=== PATIENT | female | born 1940 | race Caucasian/White ===

== ENCOUNTER → 2017-05-16 | Day surgery (SDC) | payer MEDICARE ==
[2017-05-15 12:08] LABS: BASOPHILS % 0.8 % (0.0-1.0); EOSINOPHILS # (AUTO) 0.2 (0.0-0.4); HEMATOCRIT 39.3 % (34.2-44.1); HEMOGLOBIN 12.6 g/dL (12.0-16.0); LYMPHOCYTES # (AUTO) 1.7 (1.0-3.2); LYMPHOCYTES % 43.2 % (18.0-39.1); MEAN CORPUSCULAR HEMOGLOBIN 29.8 pg (28-32); MEAN CORPUSCULAR HGB CONC 32.1 g/dL (31-35); MEAN CORPUSCULAR VOLUME 92.9 fL (81-99); MONOCYTES # (AUTO) 0.5 (0.2-0.8); MONOCYTES % 11.3 % (4.4-11.3); NEUTROPHILS # (AUTO) 1.6 (2.1-6.9); NEUTROPHILS % 39.2 % (38.7-80.0); PLATELET COUNT 249 x10e3/uL (140-360); RED BLOOD COUNT 4.23 x10e6/uL (3.6-5.1); RED CELL DISTRIBUTION WIDTH 12.8 % (11.7-14.4)
--- NOTE | 2017-05-15 15:05 | Diagnostic Imaging Report ---
PROCEDURE: Frontal and lateral views of the chest. COMPARISON: None. INDICATIONS: PREOPERATIVE CHEST XRAY FOR FOOT SURGERY FINDINGS: Lines/tubes: None. Lungs: The lungs are well inflated and clear. There is no evidence of pneumonia or pulmonary edema. Pleura: There is no pleural effusion or pneumothorax. Heart and mediastinum: The cardiac silhouette is mildly enlarged. Calcification of aortic arch. Bones: No acute bony abnormality. IMPRESSION: 1. Mild cardiomegaly. No acute cardiopulmonary disease. Gian Valerio M.D. Dictated by: Gian Valerio M.D. on 05/15/2017 at 15:06 Electronically approved by: Gian Valerio M.D. on 05/15/2017 at 15:06
[~2017-05-16] MED LIST: BUPIVACAINE HCL 0.5% INJ 30 ML VIAL INJ ONE; CEFAZOLIN SOD 2 GM/D5W 50ML 50 ML IV ONE; DEXAMETHASONE SOD PHOS INJ 4 MG/ML VIAL ONE; EPHEDRINE SULFATE INJ 50 MG/10 ML SYR ONE; ESCITALOPRAM OX10 MG PO; FENTANYL CITRATE/PF 100MCG/2 ML INJ ONE; LIDOCAINE HCL 2% LOCAL INJ 5 ML SDV VIAL INJ ONE; MELOXICAM7.5 MG; NEOSTIGMINE 1 MG/ML 10ML VIAL ONE; ONDANSETRON HCL INJ 2 MG/ML VIAL ONE; PANTOPRAZOLE SO40 MG PO; PROPOFOL IV EMULSION 10 MG/ML 20 ML VIAL ONE; SEVOFLURANE INHAL SOLN 250 ML PEN BTL ONE; SIMVASTATIN PO; SIMVASTATIN20 MG PO; XARELTO10 MG PO; XARELTO15 MG PO; ZOLPIDEM PO; ZOLPIDEM TARTRA10 MG PO
--- OUTSIDE RECORDS SUMMARY | 2017-05-16 09:35 | XMS REPORT ---
Author Author [facility] Address Unknown Phone Unavailable Care Team Providers Care Pyrometer Mechanic Name Role Phone CORDELL LEDEZMA Unavailable Unavailable Problems This patient has no known problems. Allergies, Adverse Reactions, Alerts This patient has no known allergies or adverse reactions. Medications This patient has no known medications. Results Test Description Test Time Test Comments Text Results Atomic Results Result Comments CHEST 2 VIEWS [place] [address] Patient Name: THANH REAL MR #: [id number] : 1940 Age/Sex: 77/F Req #: [id number] Adm Physician: Ordered by: CORDELL LEDEZMA DPM Report #: [id number] Location: OR Room/Bed: Procedure: [id number] DX/CHEST 2 VIEWS Exam Date: 05/15/17 Exam Time : 1345 REPORT STATUS: Signed PROCEDURE: Frontal and lateral views of the chest. COMPARISON: None. INDICATIONS: PREOPERATIVE CHEST XRAY FOR FOOT SURGERY FINDINGS: Lines/tubes: None. Lungs: The lungs are well inflated and clear. There is no evidence of pneumonia or pulmonary edema. Pleura: There is no pleural effusion or pneumothorax. Heart and mediastinum: The cardiac silhouette is mildly enlarged. Calcification of aortic arch. Bones: No acute bony abnormality. IMPRESSION: 1. Mild cardiomegaly. No acute cardiopulmonary disease. Gian Banda M.D. Dictated by: Gian Banda M.D. on 05/15/2017 at 15:06 Electronically approved by: Gian Banda M.D. on 05/15/2017 at 15:06 Dictated By: MARCELO BANDA MD, MD [id number] Transcribed By : LETICIA on 05/15/17 1506 COPY TO: CORDELL LEDEZMA DPM
--- NOTE | 2017-05-16 15:09 | Operative Report ---
DATE OF PROCEDURE: May 16, 2017 PREOPERATIVE DIAGNOSES 1. Chronic plantar fasciitis, left foot. 2. Bone spur, calcaneous, left foot. POSTOPERATIVE DIAGNOSES 1. Chronic plantar fasciitis, left foot. 2. Bone spur, calcaneous, left foot. PROCEDURES 1. Endoscopic plantar fasciotomy, left foot. 2. Excision of bone spur, calcaneal bone spur, left foot. 3. Application of posterior splint. PATHOLOGY: None. ANESTHESIA: General anesthetic. HEMOSTASIS: Pneumatic thigh tourniquet. ESTIMATED BLOOD LOSS: Less than 10 mL. MATERIALS: 15 mL of 0.5% Marcaine plain given preoperatively. COMPLICATIONS: None. CONDITION: Stable. PROCEDURE IN DETAIL: Under mild sedation, the patient was brought to the operating room and placed on the operating table in the supine position. Following IV sedation and anesthesia with general anesthetic, at this point the left foot was scrubbed, prepped and draped in the usual aseptic manner. The pneumatic ankle tourniquet was inflated to 250 mmHg. The leg was lowered to the table. Endoscopic plantar fasciitis. Attention was directed to the medial aspect of the left foot where an incision was made overlying the incision of the plantar fascia. The incision was deepened via sharp and blunt dissection down to the level of the plantar fascia. Utilizing a fascial isolator, the fascia was isolated. Then a trocar and camera were inserted. A lateral portal was then made with a 15 blade. The trocar was removed. At this point, the camera was inserted. Medial, central and lateral veins were visualized. Utilizing a fascial blade, medial and central veins were transected through and through. The lateral veins were left intact in order to support the lateral column. All instruments were removed. The area was flushed with copious amounts of normal sterile saline solution. Excision of calcaneal spur, left foot. Attention was then directed to the plantar aspect of the left foot where utilizing a combination of sharp and blunt dissection, the bone spur was isolated. At this point, utilizing a power rasp and the use of intraoperative fluoroscopy, the bone spur was removed. There was noted to be adequate removal clinically and with the use of intraoperative fluoroscopy. The area was then flushed with copious amounts of normal sterile saline solution. All incisions were closed with 4-0 nylon. Clean dressing was applied consisting of Adaptic, 4 x 4's, Kerlix, Webril, and a posterior splint was applied with care utilized. The tourniquet was deflated. There was noted to be hyperemic response to all digits. The patient tolerated the procedure and anesthesia well without complications. Was transferred to the recovery room with vital signs stable and vascular status intact to both feet. The patient was discharged home when she met criteria. She will be given instructions to be strictly nonweightbearing, ice and elevate the foot while at rest, and to follow up with me in the office. Call the office if any questions or concerns, or any problems arise. Job#: [id number] KOBE
== END | disposition home or self-care (01) ==
LOC: OR 09:33
PROVIDERS: ATTEND Podiatrist Foot & Ankle Surgery
DX: M72.2 Plantar fascial fibromatosis (principal); M77.32 Calcaneal spur, left foot; K21.9 Gastro-esophageal reflux disease without esophagitis; Z01.810 Encounter for preprocedural cardiovascular examination; Z01.812 Encounter for preprocedural laboratory examination; Z01.818 Encounter for other preprocedural examination
CPT/HCPCS: 28104; 29893; 36415; 71046; 76000; 85025; 93005; J1100; J2001; J2405; J2710

== ENCOUNTER 2017-10-18 17:51 | Observation (INO) | payer MEDICARE ==
[~2017-10-18] VITALS: Ht 160 cm; Wt 102.5 kg
[~2017-10-18 17:51] MED LIST changes: -BUPIVACAINE HCL 0.5% INJ 30 ML VIAL INJ ONE; -CEFAZOLIN SOD 2 GM/D5W 50ML 50 ML IV ONE; -DEXAMETHASONE SOD PHOS INJ 4 MG/ML VIAL ONE; -EPHEDRINE SULFATE INJ 50 MG/10 ML SYR ONE; -ESCITALOPRAM OX10 MG PO; -FENTANYL CITRATE/PF 100MCG/2 ML INJ ONE; -LIDOCAINE HCL 2% LOCAL INJ 5 ML SDV VIAL INJ ONE; -MELOXICAM7.5 MG; -NEOSTIGMINE 1 MG/ML 10ML VIAL ONE; -ONDANSETRON HCL INJ 2 MG/ML VIAL ONE; -PANTOPRAZOLE SO40 MG PO; -PROPOFOL IV EMULSION 10 MG/ML 20 ML VIAL ONE; -SEVOFLURANE INHAL SOLN 250 ML PEN BTL ONE; -SIMVASTATIN20 MG PO; -XARELTO10 MG PO; -XARELTO15 MG PO; -ZOLPIDEM TARTRA10 MG PO
[2017-10-18 18:49] LABS: BASOPHILS # (AUTO) 0.1 (0.0-0.1); BASOPHILS % 0.8 % (0.0-1.0); EOSINOPHILS # (AUTO) 0.2 (0.0-0.4); EOSINOPHILS % 3.5 % (0.0-6.0); HEMATOCRIT 40.7 % (34.2-44.1); HEMOGLOBIN 13.1 g/dL (12.0-16.0); LYMPHOCYTES # (AUTO) 2.7 (1.0-3.2); LYMPHOCYTES % 42.6 % (18.0-39.1); MEAN CORPUSCULAR HEMOGLOBIN 30.4 pg (28-32); MEAN CORPUSCULAR HGB CONC 32.2 g/dL (31-35); MEAN CORPUSCULAR VOLUME 94.4 fL (81-99); MONOCYTES # (AUTO) 0.6 (0.2-0.8); MONOCYTES % 9.4 % (4.4-11.3); NEUTROPHILS # (AUTO) 2.7 (2.1-6.9); NEUTROPHILS % 43.4 % (38.7-80.0); PLATELET COUNT 257 x10e3/uL (140-360); RED BLOOD COUNT 4.31 x10e6/uL (3.6-5.1); RED CELL DISTRIBUTION WIDTH 13.5 % (11.7-14.4)
[2017-10-18 18:58] LABS: INR 1.08; PROTHROMBIN TIME 13.2 seconds (11.9-14.5)
[2017-10-18 18:59] LABS: PARTIAL THROMBOPLASTIN TIME 25.6 seconds (23.8-35.5)
[2017-10-18 19:08] LABS: ALBUMIN 3.9 g/dL (3.5-5.0); ALBUMIN/GLOBULIN RATIO 1.3 (0.8-2.0); ANION GAP 14.8 mmol/L (8-16); CALCIUM 9.4 mg/dL (8.4-10.2); CREATININE, SERUM 0.95 mg/dL (0.57-1.11); POTASSIUM 3.8 mmol/L (3.5-5.1)
[2017-10-18] MEDS ORDERED: ENOXAPARIN INJ 80 MG/0.8 ML SYR SC STA (23:50)
[2017-10-19] VITALS (13 sets, daily range): BP systolic 121–144; BP diastolic 49–69
[2017-10-19] MEDS ORDERED: ONDANSETRON HCL INJ 2 MG/ML VIAL IV PRN ×2 (00:15→09:45)
[2017-10-19] MEDS ORDERED: SODIUM CHLORIDE FLUSH 10 ML SYR INJ PRN (00:15)
[2017-10-19] MEDS: HYDROCODONE/APAP 5MG-325MG TAB PO PRN ×3 (00:24→14:05)
[2017-10-19] MEDS ORDERED: DIPHENHYDRAMINE HCL INJ 50 MG/ML VIAL IV ONE (02:15)
[2017-10-19] MEDS ORDERED: SIMVASTATIN20 MG PO (02:49)
[2017-10-19] MEDS ORDERED: ESCITALOPRAM OX10 MG PO (02:49)
[2017-10-19] MEDS ORDERED: PANTOPRAZOLE SO40 MG PO (02:49)
[2017-10-19] MEDS ORDERED: ZOLPIDEM TARTRA10 MG PO (02:49)
[2017-10-19] MEDS ORDERED: MELOXICAM7.5 MG (02:49)
[2017-10-19] MEDS ORDERED: ENOXAPARIN INJ 80 MG/0.8 ML SYR SC SCH (09:00)
[2017-10-19] MEDS ORDERED: MELOXICAM 7.5 MG TAB PO PRN (09:30)
[2017-10-19] MEDS ORDERED: ACETAMINOPHEN 325 MG TAB PO PRN (09:45)
[2017-10-19] MEDS ORDERED: HYDRALAZINE HCL 20 MG/ML VIAL IV PRN (09:45)
[2017-10-19] MEDS: PANTOPRAZOLE SOD 40 MG TABEC PO SCH (12:23)
[2017-10-19] MEDS ORDERED: RIVAROXABAN 20 MG TABLET PO SCH (17:00)
[2017-10-19] MEDS ORDERED: ZOLPIDEM TARTRATE 10 MG TAB PO SCH (21:00)
[2017-10-19] MEDS ORDERED: SIMVASTATIN 20 MG TAB PO SCH (21:00)
[2017-10-19] MEDS ORDERED: DIPHENHYDRAMINE HCL 25 MG CAP PO NR (21:15)
[2017-10-20] VITALS: BP 150/82
[2017-10-20 04:00] VITALS: BP 123/61
[2017-10-20 05:27] LABS: BASOPHILS % 0.9 % (0.0-1.0); EOSINOPHILS # (AUTO) 0.2 (0.0-0.4); EOSINOPHILS % 3.7 % (0.0-6.0); HEMATOCRIT 38.9 % (34.2-44.1); HEMOGLOBIN 12.5 g/dL (12.0-16.0); LYMPHOCYTES # (AUTO) 1.8 (1.0-3.2); LYMPHOCYTES % 41.1 % (18.0-39.1); MEAN CORPUSCULAR HEMOGLOBIN 30.3 pg (28-32); MEAN CORPUSCULAR HGB CONC 32.1 g/dL (31-35); MEAN CORPUSCULAR VOLUME 94.4 fL (81-99); MONOCYTES # (AUTO) 0.5 (0.2-0.8); NEUTROPHILS # (AUTO) 1.8 (2.1-6.9); NEUTROPHILS % 42.8 % (38.7-80.0); PLATELET COUNT 200 x10e3/uL (140-360); RED BLOOD COUNT 4.12 x10e6/uL (3.6-5.1); RED CELL DISTRIBUTION WIDTH 13.6 % (11.7-14.4)
[2017-10-20 05:35] LABS: INR 1.4; PROTHROMBIN TIME 16.1 seconds (11.9-14.5)
[2017-10-20 05:36] LABS: PARTIAL THROMBOPLASTIN TIME 27.8 seconds (23.8-35.5)
[2017-10-20 05:45] LABS: ALANINE AMINOTRANSFERASE 16 IU/L (0-55); ALBUMIN 3.3 g/dL (3.5-5.0); ALBUMIN/GLOBULIN RATIO 1.3 (0.8-2.0); ALKALINE PHOSPHATASE 81 IU/L (40-150); ANION GAP 13.8 mmol/L (8-16); BLOOD UREA NITROGEN 13 mg/dL (7-26); BUN/CREATININE RATIO 17 (6-25); CALCIUM 9.1 mg/dL (8.4-10.2); CARBON DIOXIDE 26 mmol/L (22-29); CHLORIDE 108 mmol/L (98-107); CREATININE, SERUM 0.78 mg/dL (0.57-1.11); EST GLOMERULAR FILTRATION RATE > 60 ML/MIN (60-); GLUCOSE 112 mg/dL (74-118); POTASSIUM 3.8 mmol/L (3.5-5.1); SODIUM 144 mmol/L (136-145)
[2017-10-20 07:24] VITALS: BP 148/81
[2017-10-20] MEDS: PANTOPRAZOLE SOD 40 MG TABEC PO SCH (07:30)
[2017-10-20] MEDS ORDERED: XARELTO10 MG PO (07:42)
[2017-10-20 08:00] VITALS: BP 148/81
[2017-10-20 08:37] VITALS: BP 140/70
[2017-10-20] MEDS ORDERED: ESCITALOPRAM OXALATE 10 MG TAB PO SCH (09:00)
[2017-10-20] MEDS ORDERED: XARELTO15 MG PO (09:16)
--- NOTE | 2017-10-20 09:21 | Consultation ---
DATE OF CONSULTATION: October 19, 2017 HISTORY OF PRESENT ILLNESS: This is a very pleasant female whose past medical history includes hyperlipidemia, GERD, hypertension, arthritis. Currently in hospital with worsening left lower extremity pain. Her pain was associated with leg swelling. Her workup includes Doppler that is consistent with deep vein thrombosis. Preliminary report is available. Final report is pending. The patient is currently in the hospital for further management. She denies any prior history of similar disorder. She was feeling fatigued and tired, but denies any chest pain or shortness of breath. She is currently started on Xarelto treatment. She has significant family history of blood clot. PAST MEDICAL HISTORY: Hyperlipidemia, hypertension, arthritis, GERD. ALLERGY: NKDA. MEDICATIONS: List reviewed. SOCIAL HISTORY: No current habits. FAMILY HISTORY: Reviewed, positive for multiple blood clots. REVIEW OF SYSTEMS: Twelve-point reviewed, as per the HPI. PHYSICAL EXAMINATION GENERAL: Alert, awake, communicative. HEENT: Normocephalic, atraumatic. Sclerae pink. Conjunctivae clear. NECK: Supple. CHEST: Clear to auscultation. CARDIOVASCULAR: Regular rate and rhythm. ABDOMEN: Soft, nontender. EXTREMITIES: No clubbing, cyanosis or edema. DIRECTOR OF GROUP COUNSELING PROGRAM: Grossly intact. LABS AND IMAGING: Reviewed. ASSESSMENT AND PLAN 1. The patient with history of multiple medical conditions, currently following for new onset of left lower extremity deep vein thrombosis. The patient started on anticoagulation treatment. Final Doppler study is pending. Recommend continue anticoagulation treatment. This is unprovoked event. 2. The patient has significant family history. Recommend at least 6 months of anticoagulation treatment after plan to do hypercoagulable workup for further management. The patient will start Xarelto 50 mg twice a day. Will follow the patient closely. Thank you Dr. Hagen for this consultation. Job#: [id number]
--- NOTE | 2017-10-20 11:06 | Cardiology Report ---
DATE OF STUDY: October 19, 2017 DOPPLER SCAN OF THE LOWER EXTREMITY VEINS The lower extremity veins were interrogated using the duplex scanning method. The left leg showed absence of signals and compressibility involving the left posterior tibial vein. Elsewhere in the left leg, the veins were compressible. The right leg showed compressible veins with no definite echogenicity within the lumens. CONCLUSIONS 1. Deep venous thrombosis of undetermined age involving the left posterior tibial vein. 2. No definite deep venous thrombosis elsewhere in the legs veins bilaterally. Job#: [id number] cc:JACOB CERVANTES MD
--- NOTE | 2017-10-20 13:58 | Discharge Summary ---
ADMISSION DIAGNOSES 1. Left lower extremity deep vein thrombosis. 2. Arthritis. 3. Anxiety/depression. 4. Gastroesophageal reflux disease. 5. Insomnia. 6. Hyperlipidemia. DISCHARGE DIAGNOSES 1. Left lower extremity deep vein thrombosis. 2. Arthritis. 3. Anxiety/depression. 4. Gastroesophageal reflux disease. 5. Insomnia. 6. Hyperlipidemia. HISTORY: Patient has a history of arthritis, hyperlipidemia, insomnia, GERD, anxiety and depression, surgical history of neck surgery, left ankle surgery and left foot surgery. FAMILY HISTORY: Brother, sister and daughter have diabetes. Brother has cancer and sister has CVA history. HOSPITAL COURSE: A 77-year-old female complained of left lower extremity pain and swelling that began 3 to 4 days ago. She complains of a constant ache with intermittent sharp pains. She denies redness. She flew to [place] in March 2017. That was the extent of her travel. Pain is worse with walking and improved with meds and rest. She went to the PCP, who did a venous Doppler and told her to come to the ER because she had a DVT. On admission patient was started on Lovenox b.i.d., which was switched over to Xarelto. Venous Doppler showed possible DVT in the left lower extremity, no DVT in the right lower extremity. Arterial Doppler was also done due to significant pain and coolness of her lower extremities. The left lower extremity shows no significant stenosis. The right lower extremity shows arterial disease without significant stenosis. Vital signs stable, patient afebrile. She will discharge home with Xarelto 15 mg b.i.d. x3 weeks and follow up with Hematology. She will resume all home medications. She will also follow up with Primary Care in 1 to 2 weeks. Patient understands discharge instructions and agrees to plan. Dictated by: Pat Sellers NP JACOB CERVANTES MD Job#: [id number] EV
== END 2017-10-20 10:40 | disposition home or self-care (01) ==
LOC: ER 17:51 → ERHOLD 10-19 00:17 → INTOOBSV 10-19 00:17 → ICU 10-19 04:10 → MED/SURG2 10-19 12:46
PROVIDERS: ADMIT Internal Medicine; ATTEND Internal Medicine
DX: I82.432 Acute embolism and thrombosis of left popliteal vein (principal); E78.5 Hyperlipidemia, unspecified; F41.8 Other specified anxiety disorders; Z82.49 Family history of ischemic heart disease and other diseases of the circulatory system; K21.9 Gastro-esophageal reflux disease without esophagitis; G47.00 Insomnia, unspecified; M19.90 Unspecified osteoarthritis, unspecified site; Z83.3 Family history of diabetes mellitus; Z80.9 Family history of malignant neoplasm, unspecified; Z82.3 Family history of stroke
CPT/HCPCS: 36415 ×2; 80053 ×2; 83036; 83735; 85025 ×2; 85610 ×2; 85730 ×2; 93005; 93925; 93970; 99284; G0378 ×2; J1200; J1650; S0164 ×2